=== PATIENT | male | born 1965 | race Caucasian/White ===

== ENCOUNTER 2016-06-01 09:08 | Day surgery (SDC) | payer MEDICARE, MEDICAID ==
[~2016-06-01 09:08] MED LIST: AMBIEN10 MG PO; AMLODIPINE BESY10 M1 PO; ATIVAN1 MG PO; BACITRAYCIN PLU28 G1 TP; BACTRIM DS TAB1 EAC2 PO; CALCIUM 600 +1 EACH PO; COLACE100 MG PO; CRANACTIN PO; CRANBERRY500 M2 PO; CULTURELLE1 EAC1 PO; CYMBALTA60 MG PO; DAZIDOX10 MG PO; HIPREX1 G PO; LABETALOL HCL200 MG PO; LEVAQUIN500 M1 PO; LEVAQUIN750 M1 PO; LOPRESSOR100 MG PO; LOPRESSOR50 MG PO; MAG-OXIDE400 MG PO; METOPROLOL TART25 M1 PO; MORPHINE SULFAT60 M5 PO; MS CONTIN60 MG PO; MULTIVITAMINS1 EAC6 PO; MYCOSTATIN15 GM TP; NORCO 5-325 TA1 EACH PO; NORVASC10 M1 PO; NORVASC10 M2 PO; NORVASC10 MG PO; NORVASC5 MG PO; OS-CAL 500500 MG/TA1 PO; OXANDROLONE10 MG PO; OXYCODONE-ACET1 EAC4 PO; OXYCODONE/APAP PO; OXYCONTIN40 MG PO; PANTOPRAZOLE SO40 M3 PO; PEPCID PO; PERCOCET 10 MG/1 TAB PO; PERCOCET 10-321 EACH PO; PERCOCET 10/31 UDTAB PO; PROTONIX40 M2 PO; PROTONIX40 MG PO; PROVENTIL0.83 MG/ML IH; SENNA8.6 M2 PO; SILVADENE20 GM TP; SULFAMYLON SOL250 M1 EXT; SULFAMYLON453.6 GM TP; VALIUM5 M1 PO; VALIUM5 MG PO; VANCOMYCIN HCL750 MG IV; VESICARE10 MG PO; VESICARE5 M1 PO; VESICARE5 MG PO; VITAMIN C250 MG PO; VITAMIN C500 M3 PO; XARELTO10 M1 PO; XARELTO15 M1 PO; XARELTO20 M1 PO; ZANAFLEX4 M PO; ZOLPIDEM TARTRA10 M1 PO; ZOLPIDEM TARTRA10 M2 PO; ZOSYN 4.54.5 GM/102 IV; ZOSYN IV; [UNRECOGNIZED DRUG - OTHER] IV
[2016-07-11] MEDS ORDERED: BLOOD THINNER (11:13)
[2016-08-16] MEDS ORDERED: CILOSTAZOL100 M1 PO (10:29)
[2016-09-11] MEDS ORDERED: MS CONTIN60 M1 PO (19:53)
[2016-09-20] MEDS ORDERED: FEOSOL325 M1 PO (13:42)
[2016-09-20] MEDS ORDERED: COUMADIN5 M2 PO (13:44)
== END 2016-06-01 14:15 ==
LOC: SRG 09:08 → SHSC 09:12 → ORW 11:46 → SHSC 12:37
PROC: 0HRNX74 Replacement of Left Foot Skin with Autologous Tissue Substitute, Partial Thickness, External Approach (ICD-10-PCS; principal; 2016-06-01)
DX: L89.624 Pressure ulcer of left heel, stage 4 (principal); G82.20 Paraplegia, unspecified; I10 Essential (primary) hypertension; F41.9 Anxiety disorder, unspecified; I27.2 Other secondary pulmonary hypertension; G89.4 Chronic pain syndrome; D72.829 Elevated white blood cell count, unspecified; F41.8 Other specified anxiety disorders; N31.9 Neuromuscular dysfunction of bladder, unspecified; F17.210 Nicotine dependence, cigarettes, uncomplicated; Z79.01 Long term (current) use of anticoagulants; Z79.899 Other long term (current) drug therapy; Z87.442 Personal history of urinary calculi; Z86.711 Personal history of pulmonary embolism; Z86.718 Personal history of other venous thrombosis and embolism; Z93.3 Colostomy status; Z98.890 Other specified postprocedural states
CPT/HCPCS: J0171; J1580; J2270; J3370; J7030

== ENCOUNTER 2016-08-17 09:36 | Day surgery (SDC) | payer MEDICARE, MEDICAID ==
[~2016-08-17 09:36] MED LIST changes: +BLOOD THINNER; +CILOSTAZOL100 M1 PO
[2016-09-11] MEDS ORDERED: MS CONTIN60 M1 PO (19:53)
[2016-09-20] MEDS ORDERED: FEOSOL325 M1 PO (13:42)
[2016-09-20] MEDS ORDERED: COUMADIN5 M2 PO (13:44)
== END 2016-08-17 14:12 ==
LOC: SRG 09:36 → SHSC 09:40
PROC: 0HRNXK3 Replacement of Left Foot Skin with Nonautologous Tissue Substitute, Full Thickness, External Approach (ICD-10-PCS; principal; 2016-08-17)
PROC: 0HRLXK3 Replacement of Left Lower Leg Skin with Nonautologous Tissue Substitute, Full Thickness, External Approach (ICD-10-PCS; 2016-08-17)
PROC: 0LT Tendons, Resection (ICD-10-PCS; 2016-08-17)
DX: S91.302A Unspecified open wound, left foot, initial encounter (principal); S91.002A Unspecified open wound, left ankle, initial encounter; S81.802A Unspecified open wound, left lower leg, initial encounter; G82.20 Paraplegia, unspecified; I73.9 Peripheral vascular disease, unspecified; I10 Essential (primary) hypertension; F41.9 Anxiety disorder, unspecified; R73.9 Hyperglycemia, unspecified; I27.2 Other secondary pulmonary hypertension; K21.9 Gastro-esophageal reflux disease without esophagitis; I25.10 Atherosclerotic heart disease of native coronary artery without angina pectoris; G89.4 Chronic pain syndrome; Z79.01 Long term (current) use of anticoagulants; Z79.899 Other long term (current) drug therapy; Z88.0 Allergy status to penicillin; Z87.891 Personal history of nicotine dependence; Z87.442 Personal history of urinary calculi; Z86.711 Personal history of pulmonary embolism; Z98.890 Other specified postprocedural states
CPT/HCPCS: 27630; C5271; C5272; C5275; C5276 ×2; J0171; J3370; Q4100